=== PATIENT | female | born 1955 | race Caucasian/White ===

== ENCOUNTER → 2022-08-31 14:49 | Outpatient (BNVA) | payer MEDICARE, OTHER, SELFPAY | PROVIDERS: Family Provider Family Medicine; PCP Family Medicine; Visit Provider Clinical Nurse Specialist Adult Health | DX: N30.01 Acute cystitis with hematuria (principal) | CPT/HCPCS: 81000; 87086 ==

== ENCOUNTER 2023-05-20 15:44 | Outpatient (CLI) | payer MEDICARE, SELFPAY ==
--- NOTE | 2023-05-20 08:06 | MM_ITS ---
WS: [id number] BILATERAL 3D TOMOSYNTHESIS DIGITAL SCREENING MAMMOGRAPHY WITH CAD CLINICAL INFORMATION: Z00.00 - Encounter for general adult medical examination ... HISTORY: Screening mammogram. No current complaints. COMPARISON: New baseline TECHNIQUE: Bilateral CC and MLO views. FINDINGS: The breasts are composed of heterogeneous fibroglandular density tissue, which can limit the detectio n of small underlying mass lesions. No suspicious mass, asymmetry, calcifications, or architectural d istortion. No evidence of malignancy. Dystrophic calcifications bilaterally. Punctate and clustered c alcifications. IMPRESSION: MM/[place] [id number] BI-RADS: 2-Benign FOLLOW UP: 1 Year Follow-up Recommend return to annual screening mammography.
== END 2023-05-20 15:45 | disposition home or self-care (01) ==
LOC: MOBLMAM 15:50
PROVIDERS: PCP Family Medicine; Visit Provider Family Medicine
DX: Z12.31 Encounter for screening mammogram for malignant neoplasm of breast (principal); Z00.00 Encounter for general adult medical examination without abnormal findings
CPT/HCPCS: 77063; 77067

== ENCOUNTER 2024-05-03 15:12 | Outpatient (CLI) | payer MEDICARE, OTHER, SELFPAY ==
--- NOTE | 2024-05-03 15:15 | XRR_ITS ---
PROCEDURE INFORMATION: Exam: XR Left Knee Exam date and time: 05/03/2024 3:33 PM Age: 68 years old Clinical indication: Pain; Knee; Left; Additional info: M25.562 - pain in left knee TECHNIQUE: Imaging protocol: Radiologic exam of the left knee. Views: 3 views. COMPARISON: No relevant prior studies available. 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 Mild osteoarthritis of the patellofemoral joint. Small suprapatellar effusion. No acutely displaced fractures. No joint dislocation. Soft tissues: No significant soft tissue swelling. XR/XR knee LT 3V* [id number] IMPRESSION: Small suprapatellar effusion.
== END 2024-05-03 15:13 | disposition home or self-care (01) ==
PROVIDERS: PCP Family Medicine; Visit Provider Nurse Practitioner Family
DX: M25.562 Pain in left knee (principal); M25.462 Effusion, left knee
CPT/HCPCS: 73562

== ENCOUNTER → 2024-07-18 13:53 | Outpatient (BNVA) | payer OTHER, SELFPAY | PROVIDERS: PCP Family Medicine; Visit Provider Student in an Organized Health Care Education/Training Program | DX: M25.562 Pain in left knee; M23.307 Other meniscus derangements, unspecified meniscus, left knee | CPT/HCPCS: 73560; 73565 ==

== ENCOUNTER 2024-07-25 15:44 | Outpatient (CLI) | payer OTHER, SELFPAY ==
--- NOTE | 2024-07-25 16:00 | MR_ITS ---
WS: [id number] MRI LEFT KNEE NONCONTRAST TECHNIQUE: Axial PD, coronal PD fat sat, coronal PD, sagittal PD, and sagittal PD fat-sat images obta ined. CLINICAL INFORMATION: knee pain COMPARISON: None. 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 Minimal associated depression incompletely healed fracture. Mild to moderate edema in the surroundin g tibial plateau. Small focal osteochondral defect involving the abutting medial femoral condyle with surrounding edema. Recommend correlation with prior trauma. Distal quadriceps and patella tendons are intact. Small suprapatellar effusion. ACL and PCL appear in tact. Lobulated popliteal cyst measuring 3.9 x 1.3 cm. Small amount of fluid and edema along the MCL compatible with grade 1 injury. Lateral collateral ligaments appears intact. Normal popliteus. Normal lateral meniscus. Chronic thinning of the medial meniscus. Horizontal tear involving the posterior h orn medial meniscus extending to the inferior and peripheral articular surface. Chronic degeneration of the medial meniscus. MR/MR knee LT wo con* [id number] IMPRESSION: 1. 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 Mild to moderate surrounding edema 2. Small focal osteochondral injury involving the abutting medial femoral cond yle with underlying edema. 3. 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 4. Horizontal tear involving the posterior horn medial meniscus extending to t he inferior and peripheral articular surface with blunting of the posterior hor n with slight peripheral extrusion. 5. Grade 1 injury MCL. 6. 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 7. Lobulated popliteal cyst described above. Outbridge grading: grade III: partial-thickness cartilage loss with focal ulcer ation
== END 2024-07-25 15:45 | disposition home or self-care (01) ==
LOC: RAD 15:47
PROVIDERS: PCP Family Medicine; Visit Provider Student in an Organized Health Care Education/Training Program
DX: M17.12 Unilateral primary osteoarthritis, left knee (principal); S82.132A Displaced fracture of medial condyle of left tibia, initial encounter for closed fracture; M23.222 Derangement of posterior horn of medial meniscus due to old tear or injury, left knee; S83.412A Sprain of medial collateral ligament of left knee, initial encounter; M22.42 Chondromalacia patellae, left knee; M71.22 Synovial cyst of popliteal space [Baker], left knee; X58.XXXA Exposure to other specified factors, initial encounter
CPT/HCPCS: 73721

== ENCOUNTER → 2024-12-15 10:16 | Outpatient (BNVA) | payer MEDICARE, SELFPAY | PROVIDERS: PCP Family Medicine; Visit Provider Family Medicine | DX: I10 Essential (primary) hypertension (principal); J43.9 Emphysema, unspecified | CPT/HCPCS: 80053; 80061; 85025 ==